=== PATIENT | female | born 1965 | race Caucasian/White ===

== ENCOUNTER → 2023-10-13 07:24 | Outpatient (REF) | payer OTHER, SELFPAY | LOC: HWWDC 07:24 | PROVIDERS: ATTENDING PHYSICIAN Obstetrics & Gynecology; FAMILY PHYSICIAN Family Medicine | DX: Z12.31 Encounter for screening mammogram for malignant neoplasm of breast (principal) | CPT/HCPCS: 77063; 77067 ==

== ENCOUNTER → 2024-03-09 07:13 | Outpatient (REF) | payer OTHER, SELFPAY | LOC: HWRAD 07:13 | PROVIDERS: ATTENDING PHYSICIAN Nurse Practitioner Family | DX: D17.0 Benign lipomatous neoplasm of skin and subcutaneous tissue of head, face and neck (principal) | CPT/HCPCS: 76536 ==

== ENCOUNTER → 2024-04-13 06:21 | Day surgery (SDC) | payer OTHER, SELFPAY | LOC: GI 06:21 | PROVIDERS: ATTENDING PHYSICIAN Internal Medicine Gastroenterology | DX: K51.00 Ulcerative (chronic) pancolitis without complications (principal); D12.4 Benign neoplasm of descending colon; K62.89 Other specified diseases of anus and rectum; Z80.0 Family history of malignant neoplasm of digestive organs | CPT/HCPCS: 45380; 88305 ==

== ENCOUNTER → 2024-08-07 15:29 | Outpatient (REF) | payer OTHER, SELFPAY | LOC: HWRAD 15:29 | PROVIDERS: ATTENDING PHYSICIAN Nurse Practitioner Family | DX: M25.562 Pain in left knee (principal) | CPT/HCPCS: 73564 ==

== ENCOUNTER 2025-01-20 21:52 | Emergency (ER) | payer OTHER, SELFPAY ==
[2025-01-20 21:59] VITALS: BP 145/78
[2025-01-20 22:16] LABS: % Basophils 0.6 % (0-2); % Eosinophils 1.5 % (0-6); % Immature Granulocytes 0.6 % (0-0.5); % Monocytes 10.4 % (1.7-9.3); % Neutrophils 61.9 % (42.2-75.2); Absolute Basophils 0.1 10^3/uL (0-0.2); Absolute Eosinophils 0.1 10^3/uL (0-0.7); Absolute Immature Granulocytes 0.1 10^3/uL (0-0.05); Absolute Lymphocytes 2.1 10^3/uL (1.2-3.4); Absolute Monocytes 0.9 10^3/uL (0.1-0.6); Absolute Neutrophils 5.1 10^3/uL (1.4-6.5); Hematocrit 39.6 % (37.0-47.0); Hemoglobin 13.7 g/dL (12.0-16.0); Mean Corp Hgb Conc. 34.6 g/dL (33.0-37.0); Mean Corpuscular Hgb 31.8 pg (27.0-31.0); Mean Corpuscular Volume 91.9 fL (81.0-99.0); Mean Platelet Volume 10.2 fL (7.4-10.4); Nucleated Red Blood Cells % 0 %; Platelet Count 212 10^3/uL (130-400); Red Blood Cell Count 4.31 10^6/uL (4.20-5.40); Red Cell Dist. Width 12.2 % (11.5-14.5); White Blood Cell Count 8.2 10^3/uL (4.8-10.8)
[2025-01-20 22:35] LABS: ALT (SGPT) 31 U/L (0-35); AST (SGOT) 25 U/L (14-36); Albumin 4.3 g/dl (3.5-5.0); Alkaline Phosphatase 50 U/L (38-126); Blood Urea Nitrogen 16 mg/dl (7-17); Calcium 9.1 mg/dl (8.4-10.2); Carbon Dioxide 27 mmol/L (22-30); Chloride 107 mmol/L (98-107); Glucose 144 mg/dl (70-99); Potassium 3.9 mmol/L (3.5-5.1); Sodium 141 mmol/L (135-145); Total Bilirubin 0.4 mg/dl (0.2-1.3); Total Protein 7.5 g/dl (6.3-8.2); eGFR > 60.00
[2025-01-20 22:40] LABS: NT-proBNP < 20.0 pg/ml; Troponin I < 0.012 ng/ml
[2025-01-21] VITALS: BP 114/52
[2025-01-21 00:02] VITALS: BP 114/52
[2025-01-21 00:05] VITALS: BMI 35.1
[2025-01-21 00:42] LABS: D-Dimer 0.46 ug/mlFEU (0.00-0.50)
--- NOTE | 2025-01-21 00:55 | ED.GENMED ---
History of Present Illness
General
Chief Complaint: Chest Pain
Source: patient
Exam Limitations: none
Time Seen by Provider: 01/21/25 00:00
Nursing documentation reviewed up to this point in time: agreed with
History of Present Illness
History of Present Illness:
59-year-old female with past medical history as noted presents to the emergency department for evaluation of chest pain. Patient reports that symptoms have been ongoing since yesterday. She describes an intermittent sharp pain left parasternal
region. She reports that initially she attributed to muscular pain as she was very active moving things on her return from vacation. Today intermittent symptoms continued and she noted that she would occasionally get some clamminess and some
achiness in her left shoulder as well which prompted her to come to the ER to be evaluated. No exertional component. She reports 4-5 episodes today lasting for a few minutes at a time. She said that she may have had some mild shortness of breath
today but she is not sure whether it was simply from anxiety. She denies any nausea or vomiting. She denies any abdominal pain. She denies any recent cough or illness. Denies any swelling in the legs. She denies any other acute complaints. She
denies any known cardiac history. Denies any personal history of DVT/PE. She did have a recent short drive to [place], ~2 hours.
Past History
Past History
ED Past Medical History: Hypothyroidism, Other (Ulcerative colitis) and Other (u.colitis. Vertigo, Polyps)
ED Past Surgical History: Cholecystectomy
Social History
Tobacco: Non-smoker
Alcohol: Occasional
Drug: None
Personal:
Living: with family
Employment: Employed
Family History
Family History: Hypertension
Review of Systems
Review of Systems
All Other Systems: ROS reviewed and negative except as documented in HPI and ROS
Constitutional: Denies fever
Respiratory: Reports trouble breathing; Denies cough
Cardiac: Reports chest pain and diaphoresis (Mild clamminess); Denies palpitations or syncope
ABD/GI: Denies abdominal pain, nausea, vomiting or diarrhea
Musculoskeletal: Denies edema
Neurological: Denies dizzy or headache
Phy Exam
Physical Exam
Physical Exam:
General: Awake, alert, oriented x3; no acute distress
Head: Normocephalic, atraumatic
Eyes: Conjunctiva normal, sclera anicteric
Throat: Airway intact, handling secretions
Neck: Trachea midline, no JVD
Lungs: Clear to auscultation bilaterally, no wheezing, rales, rhonchi
Heart: Regular rate and rhythm, no murmurs, gallops, or rubs
Abd: Soft, non distended, nontender
Neuro: No gross deficits
Skin: no rash
Extremities: No edema in extremities, no calf tenderness, equal pulses in all extremities
Scores
Heart Failure Risk
Heart Failure Risk Score: Not Applicable
Heart Score for Chest Pain Patients
STEMI patient?: No
History: Slightly or Non-Suspicious
ECG: Normal
Age: >45 - <65 years
Risk Factors: 1 or 2 Risk Factors
Troponin: </= Normal Limit
Heart Score for Chest Pain Patients: 2
Heart Score Risk: 2.5% MACE over next 6 weeks
Withdrawal Assessment of Alcohol
Withdrawal Assessment Completed?: Not applicable
Course
Orders/Labs/Results
Orders:
Orders
01/20/25 21:54
ECG [Electrocardiogram (*1)] Urgent
Reason for Study: Chest Pain
EKG- Treatment ONCE
01/20/25 22:05
Cardiac Monitoring- Treatment ONCE
IV Insert/Care/Rem.- Treatment PRN
CR Chest - 2 Views Urgent
Comment:
Reason For Exam: respiratory distress
O2 Therapy [RESP] Urgent
Titrate/Wean O2 to maintain O2 sat greater than (%): 93
Special Instructions: TO MAINTAIN CONTINUOUS O2 SATS >/= 93%
Pulse Ox/cont/shift [RESP] Urgent
Quantity: 1
Special Instructions: continuous pulse ox
01/20/25 22:10
Complete Blood Count/With Diff Urgent
Comprehensive Metabolic Panel Urgent
NT-proBNP Urgent
Troponin I Urgent
01/21/25 00:18
D-Dimer Urgent
01/21/25 01:08
EKG [Electrocardiogram (*1)] Urgent
Reason for Study: Chest Pain
EKG- Treatment ONCE
01/21/25 01:14
Troponin I Urgent
Abnormal Lab Results
01/20/25
22:10
MCH 31.8 H pg
(27.0-31.0)
Abs Immat Gran (auto) 0.1 H 10^3/uL
(0-0.05)
Absolute Monos (auto) 0.9 H 10^3/uL
(0.1-0.6)
Immature Gran % 0.6 H %
(0-0.5)
Monocytes % 10.4 H %
(1.7-9.3)
Glucose 144 H mg/dl
(70-99)
01/20/25 22:10
01/20/25 22:10
Vital Signs
Initial and Last Documented VS:
Initial Vital Signs
Temp Pulse Resp BP Pulse Ox
36.5 C 78 20 145/78 96
01/20/25 21:59 01/20/25 21:59 01/20/25 21:59 01/20/25 21:59 01/20/25 21:59
Last Documented Vital Signs
Temp Pulse Resp BP Pulse Ox
36.5 C 71 16 114/52 97
01/20/25 21:59 01/21/25 00:03 01/21/25 00:03 01/21/25 00:02 01/21/25 01:01
MDM/Problems Addressed
Differential Diagnosis Includes:
Angina/ACS, costochondritis, PE, GERD
MDM/Problems Addressed:
59-year-old female presents for evaluation of intermittent atypical chest pain over the past 24 hours. Today had some associated shoulder pain and clamminess which prompted ER visit. Vital signs are normal here. Physical exam as above. Her EKG
shows sinus rhythm no acute ischemia. She had initial set of labs sent off including CBC and CMP which showed no clinically significant abnormalities. Her initial troponin is undetectable. Will repeat troponin. Check D-dimer. Check chest x-ray.
Reassess after the above.
Chest x-ray reviewed by me shows no acute disease. D-dimer negative. Awaiting repeat troponin. Vital signs have been stable.
Repeat troponin is also undetectable. No change on serial EKG. Vital signs have been stable. Chest pain-free on reassessment. Very low suspicion that this is cardiac chest pain, could be costochondritis as she was doing some recent moving. I
think she is stable for discharge and follow-up with her primary care physician. She feels comfortable this plan. All questions answered.
*Radiology
Radiology exam reviewed: preliminary read by ED provider (No acute disease on my independent review)
*Pulse Oximetry
SaO2: 97
Oxygen Mode of Delivery: Room air
Patient hypoxic: no (97%)
*EKG
Interpreted by ED Provider?: Yes
Heart Rate: 76
Rate: normal
Rhythm: sinus
[place]: normal axis
Interval: normal interval
QRS Pattern: normal QRS
Ischemia: no ischemia
*Critical Care Note
Total Time (30-74mins, 75-104mins- exclusive of procedures): Not Applicable
Data Reviewed
Review of Other/Old Records Reveals: Labs and Records
Source: patient and records
ED Attending Note
-
Portions of this chart may have been created with voice recognition software.� Occasional wrong word or��sound alike� substitutions may have occurred due to the inherent limitations of voice recognition software.
Discharge Plan
Departure
Patient Disposition: Home (Routine Discharge)
Date of Disposition: 01/21/25
Time of Disposition: 01:51
Patient with high blood pressure during this ER visit?: No
Discharge Problem:
Chest pain
Instructions: Chest Pain PCP Follow Up
Prescriptions:
No Action
multivitamin [Jjm-[id number]] 1 EACH tablet
1 tab PO DAILY
levothyroxine 88 MCG tablet
88 mcg PO DAILY
mesalamine [Lialda] 1.2 GM tablet,delayed release (DR/EC)
2.4 gm PO DAILY
Patient Comments:
EACH TAB- 1.2 GRAM 'TAKE 2 TABS IN AM'
calcium carbonate-vitamin D3 [Caltrate 600 plus D] 1 EACH tablet,chewable
1 tab PO DAILY
calcium carbonate [Antacid (calcium carbonate)] 1 TABLET tablet,chewable
1 - 2 tab PO Q6HPRN PRN (Reason: ACID S/S)
hydrocodone-acetaminophen 1 TABLET tablet
1 - 2 tab PO Q4HPRN PRN (Reason: moderate to severe pain) Qty: 15 0RF
Referrals:
UNKNOWN - PT DOES,NOT KNOW [Family Provider]
Activity Restrictions/Additional Instructions:
Thank you for visiting the Emergency Department at [facility].
1. Please schedule a follow up appointment as directed. Call first thing tomorrow morning to make an appointment.
2. If indicated, please take your medications as instructed and indicated on discharge paperwork.
3. If any of your symptoms do not improve, or persist, or become more severe within 6-12 hours, please return to the emergency department for further care.
4. Please return to the emergency department if you develop a headache, neck pain/stiffness, fever greater than 100.4F, chest pain, shortness of breath, persistent nausea, vomiting, slurred speech, difficulty walking, numbness/tingling, weakness,
signs of infection or any other symptoms that are worrisome to you.
Please call [phone] if you have any questions.
Interventions
Interventions:
*Risk Screen - Suicide Last Done: 01/20/25 21:59
*General Assessment Last Done: 01/20/25 21:59
*Neglect/Abuse Screening Last Done: 01/20/25 21:59
*ED- Fall Risk Assessment Last Done: 01/20/25 21:59
*ED COVID-19 Vaccine History Last Done: 01/20/25 21:59
ED- Cardiac Assessment Last Done: 01/20/25 23:55
Discharge Date and Time
Print Language: GREEK
[2025-01-21 01:50] LABS: Troponin I < 0.012 ng/ml
[2025-01-21 02:05] VITALS: BP 134/66
== END 2025-01-21 02:05 | disposition home or self-care (01) ==
LOC: EMR 21:52
PROVIDERS: Emergency Medicine; EMERGENCY PHYSICIAN Emergency Medicine
DX: R07.89 Other chest pain (principal); M25.512 Pain in left shoulder; R61 Generalized hyperhidrosis; E03.9 Hypothyroidism, unspecified; K51.90 Ulcerative colitis, unspecified, without complications; Z86.16 Personal history of COVID-19; Z90.49 Acquired absence of other specified parts of digestive tract; Z88.0 Allergy status to penicillin
CPT/HCPCS: 99285; 94760; 71046; 80053; 83880; 84484; 85025; 85379; 93005

== ENCOUNTER → 2025-03-30 14:00 | Outpatient (REF) | payer SELFPAY | LOC: HWRAD 14:00 | PROVIDERS: ATTENDING PHYSICIAN Internal Medicine Cardiovascular Disease; FAMILY PHYSICIAN Nurse Practitioner Family | DX: E78.2 Mixed hyperlipidemia (principal) | CPT/HCPCS: 75571 ==

== ENCOUNTER 2025-05-28 06:19 | Day surgery (SDC) | payer OTHER, SELFPAY | END 2025-05-28 12:12 | disposition home or self-care (01) | LOC: GI 06:19 | PROVIDERS: ATTENDING PHYSICIAN Internal Medicine Gastroenterology | DX: Z12.11 Encounter for screening for malignant neoplasm of colon (principal); K51.90 Ulcerative colitis, unspecified, without complications; K57.30 Diverticulosis of large intestine without perforation or abscess without bleeding; K64.8 Other hemorrhoids; Z80.0 Family history of malignant neoplasm of digestive organs | CPT/HCPCS: 45380; 88305 ==